=== PATIENT | male | born 1980 ===

== ENCOUNTER 2016-06-03 21:40 | Emergency (ER) | payer OTHER ==
[2016-06-03 22:02] VITALS: PULSE 90; RESP 20; O2SAT 99
--- NOTE | 2016-06-03 22:31 | ED PDOC ---
Upper Extremity Pain/Injury Time Seen by Provider: 06/03/16 22:28 Chief Complaint (Nursing): Upper Extremity Problem/Injury Chief Complaint (Provider): hand pain History Per: Patient History/Exam Limitations: no limitations Additional Complaint(s): 35yo M in ED for eval of injury to right hand-state he fell onto hand. denies numbness or tingling denies weakness right hand dominant admits to pain with ROM on lateral side. no skin break Past Medical History Reviewed: Historical Data, Nursing Documentation, Vital Signs Vital Signs: Last Vital Signs Temp 100.3 F H 06/03/16 22:00 Pulse 90 06/03/16 22:00 Resp 20 06/03/16 22:00 BP 168/104 H 06/03/16 22:00 Pulse Ox 99 06/03/16 22:00 - Medical History PMH: No Chronic Diseases - Surgical History Surgical History: Back Surgery (2 years ago) - Family History Family History: States: Unknown Family Hx - Immunization History Hx Tetanus Toxoid Vaccination: No Hx Influenza Vaccination: No Hx Pneumococcal Vaccination: No - Home Medications Home Medications: Ambulatory Orders Medication Instructions Recorded Naproxen 500 mg PO BID PRN #14 tab 07/29/15 Ibuprofen [Motrin] 400 mg PO Q6 #30 tab 06/03/16 - Allergies Allergies/Adverse Reactions: Allergies Allergy/AdvReac Type Severity Reaction Status Date / Time No Known Allergies Allergy Verified 07/29/15 06:17 Review of Systems ROS Statement: Except As Marked, All Systems Reviewed And Found Negative Musculoskeletal: Positive for: Hand Pain Physical Exam - Reviewed Nursing Documentation Reviewed: Yes Vital Signs Reviewed: Yes - Physical Exam Appears: Positive for: Well, Non-toxic, No Acute Distress Head Exam: Positive for: ATRAUMATIC, NORMAL INSPECTION, NORMOCEPHALIC Skin: Positive for: Normal Color, Warm, DRY Extremity: Positive for: Other (right hand: swelling to ulnar side no defomirty limted ROM tenderness. good pulses. ) Neurologic/Psych: Positive for: Alert, Oriented - ECG O2 Sat by Pulse Oximetry: 99 - Radiology X-Ray: Interpreted by Ok X-Ray Interpretation: Fracture (5th MCP base fx) - Progress ED Course And Treament: xray and motrin Medical Decision Making Medical Decision Making: pt will require ulnar gutter splint with f.u with hand specialist. motrin for pain dx: boxers fx. Procedures - Splinting Location: right hand Hand-Made Type: orthoglass Splint: ulnar Pre-Proc Neuro Vasc Exam: normal Post-Proc Neuro Vasc Exam: normal Disposition - Clinical Impression Clinical Impression: Boxer's fracture - Patient ED Disposition Is Patient to be Admitted: No Counseled Patient/Family Regarding: Studies Performed, Diagnosis, Need For Followup, Rx Given - Disposition Referrals: Rob Armstrong MD [Medical Doctor] - Disposition: Routine/Home Disposition Time: 22:56 Condition: STABLE Prescriptions: Ibuprofen [Motrin] 400 mg PO Q6 #30 tab Instructions: Hand Fracture (ED) Forms: [facility] ED School/Work Excuse Print Language: TRISTANIAN
[2016-06-03 23:31] VITALS: BP 150/86; TEMP 99.5
--- NOTE | 2016-06-04 09:29 | RAD ---
PROCEDURE: Right Wrist Radiographs. HISTORY: trauma attn fith digit COMPARISON: None. FINDINGS: BONES: Comminuted and displaced fracture involving the base of the 5th metacarpal with extension into the metacarpal-carpal joint. Loose body measuring approximately 8 millimeters noted. JOINTS: No significant degenerative changes. SOFT TISSUES: Soft tissue swelling. OTHER FINDINGS: None. IMPRESSION: Comminuted fracture involving the base of the 5th metacarpal with extension into the carpometacarpal joint. 8 millimeter loose body noted.
== END 2016-06-03 23:33 | disposition home or self-care (01) ==
LOC: H.ER 21:40
DX: S62.301A Unspecified fracture of second metacarpal bone, left hand, initial encounter for closed fracture (principal); W19.XXXA Unspecified fall, initial encounter; Y92.89 Other specified places as the place of occurrence of the external cause